=== PATIENT | female | born 1995 | race Caucasian/White ===

== ENCOUNTER 2017-06-27 19:44 | Emergency (ER) | payer BC ==
[2017-06-27 19:49] VITALS: RESP 16; TEMP 98.8
[2017-06-27] MEDS: ALBUTEROL 3 ML DEYVIAL IH ONE (19:59)
[2017-06-27] MEDS ORDERED: predniSONE 20 MG TAB PO ONE (20:02)
--- NOTE | 2017-06-27 20:06 | EDPHY ---
H & P Stated Complaint: SOB Source: Patient Exam Limitations: No limitations - Personal History LMP (Females 10-55): Now Current Tetanus/Diphtheria Vaccine: Yes Current Tetanus Diphtheria and Acellular Pertussis (TDAP): Yes - Medical/Surgical History Hx Asthma: Yes Hx Chronic Respiratory Disease: No Hx Diabetes: No Hx Cardiac Disease: No Hx Renal Disease: No Hx Cirrhosis: No Hx Alcoholism: No Hx HIV/AIDS: No Hx Splenectomy or Spleen Trauma: No Other PMH: asthma - Social History Smoking Status: Never smoked Time Seen by Provider: 06/27/17 20:03 HPI/ROS: HPI: This is a 21-year-old female who presents Chief Complaint: Wheezing Location: Chest Quality: Wheezing Duration: 1 hour prior to arrival Signs and Symptoms: No fever, no chills, no sore throat, no neck stiffness, no headache, no cough Timing: Sudden Severity: Moderate to severe Context: Patient reports that she has all local [facility] [employer] college student originally from [place] with a history of asthma presents today complaining of sudden onset of wheezing and difficulty catching her breath approximately 1 hour prior to arrival. She reports that she had a similar occurrence yesterday that only lasted for a few minutes and the wheezing self- resolved. She denies any fever, chills, sore throat, body aches. Unfortunately she does not have her albuterol inhaler with her and is requesting a refill. Patient denies ever having to be hospitalized for asthma exacerbation and reports that she has not had an attack like this in greater than 5 years. She is currently on her menses. Modifying Factors: None Comment: ROS: see HPI Constitutional: No fever, no chills, no weight loss Eyes: No blurred vision Respiratory: No shortness of breath, no cough Cardiovascular: No chest pain Gastrointestinal: No nausea, no vomiting, no diarrhea Genitourinary: No dysuria Extremities: No myalgias Neurologic: No weakness, no numbness Skin: No rashes Hematologic: No bruising, no bleeding MEDICAL/SURGICAL/SOCIAL HISTORY: Medical history: Generally healthy. Does not take any regular medications. Surgical history: Denies Social history: local college student CONSTITUTIONAL: Fatigue well-appearing very polite young adult female, awake and alert, no obvious distress HEENT: Atraumatic and normocephalic, PERRL, EOMI. Tympanic membranes clear. Oropharynx clear, no exudate and moist pink mucosa. Airway patent. No lymphadenopathy. No meningismus. Cardiovascular: Normal S1/S2, regular rate, regular rhythm, without murmur rub or gallop. PULMONARY/CHEST: Symmetrical and nontender. Expiratory wheezing throughout. Average air movement. Tachypnea. Shallow quick breathing pattern. No accessory muscle usage. ABDOMEN: Soft, nondistended, nontender, no rebound, no guarding, no peritoneal signs, no masses or organomegaly. No CVAT. EXTREMITIES: 2/2 pulses, strength 5/5, no deformities, no clubbing, no cyanosis or edema. NEUROLOGICAL: no focal neuro deficits. GCS 15. SKIN: Warm and dry, no erythema. no rash. Good capillary refill. (Kym Ma) Constitutional: Initial Vital Signs Temperature (C) 37.1 C 06/27/17 19:47 Heart Rate 87 06/27/17 19:47 Respiratory Rate 16 06/27/17 19:47 Blood Pressure 137/102 H 06/27/17 19:47 O2 Sat (%) 94 06/27/17 19:47 O2 Delivery Mode Room Air Allergies/Adverse Reactions: Sulfa (Sulfonamide Antibiotics) Allergy (Verified 06/27/17 19:49) Home Medications: Medication Instructions Recorded Albuterol Sulfate [Ventolin Hfa] 8 gm IH Q4 PRN #2 hfa.aer.ad 06/27/17 Control 06/27/17 predniSONE 40 mg PO DAILY 5 Days #10 tab 06/27/17 Medical Decision Making - Diagnostics Imaging Results: Imaging Impressions Chest X-Ray 06/27/17 20:03 Impression: Features consistent with reactive airways' disease and/or a virally- mediated bronchitis. There is no focal pneumonia or pneumothorax. ED Course/Re-evaluation: O2 sats upon arrival are 94% on room air with no tachycardia Patient is afebrile and no systemic signs. Patient given albuterol inhaler x1, p.o. prednisone 60 mg with improved aeration and resolution of wheezing Chest x-ray via PACs my read shows no focal opacity, effusion, pneumothorax O2 sats improved to 99% on room air at discharge (Kym Ma) Differential Diagnosis: Shortness of breath including but not limited to pulmonary infectious process, asthma, pulmonary embolus and upper respiratory infection. (Kym Ma) Other Provider: PHYSICIAN DOCUMENTATION: The patient was evaluated and managed by the Physician Wait Staff. My co- signature indicates that I have reviewed this chart and I agree with the findings and plan of care as documented. I am the secondary supervising physician. (Lemuel Corea) - Data Points Medications Given: Discontinued Medications Albuterol (Proventil Neb) 3 ml IH EDNOW ONE Stop: 06/27/17 19:58 Last Admin: 06/27/17 19:59 Dose: 3 ml Prednisone (Prednisone) 60 mg PO EDNOW ONE Stop: 06/27/17 20:03 Last Admin: 06/27/17 20:06 Dose: 60 mg Departure - Departure Disposition: Home, Routine, Self-Care Clinical Impression: Mild asthma exacerbation Condition: Good Instructions: Asthma (ED), How to Use a Nebulizer (ED) Referrals: [facility],. [Clinic] - As per Instructions Prescriptions: Albuterol Sulfate [Ventolin Hfa] 8 gm IH Q4 PRN #2 hfa.aer.ad PRN Reason: Wheezing predniSONE 40 mg PO DAILY 5 Days #10 tab
[2017-06-27] MEDS ORDERED: ALBUTEROL INH PREPACK MDI TAKEHOME ONE (21:03)
[2017-06-27 21:09] VITALS: BP 118/82; PULSE 84; O2SAT 98
== END 2017-06-27 21:09 | disposition home or self-care (01) ==
DX: J45.901 Unspecified asthma with (acute) exacerbation (principal)
CPT/HCPCS: J0171